=== PATIENT | male | born 1995 | race Caucasian/White ===

== ENCOUNTER 2023-08-05 18:27 | Emergency (ER) | payer OTHER ==
[~2023-08-05] VITALS: Ht 180.3 cm; Wt 95.3 kg
[2023-08-05 18:46] VITALS: BP_SYST 143; PULSE 76; RESP 16; TEMP 97.8; O2SAT 100
[2023-08-05] MEDS ORDERED: METR-154 PO (19:06)
[2023-08-05 19:18] VITALS: BP_SYST 143; PULSE 76; RESP 16; TEMP 97.8; O2SAT 100
== END 2023-08-05 19:19 | disposition home or self-care (01) ==
LOC: SED 18:27
DX: K52.9 Noninfective gastroenteritis and colitis, unspecified (principal)
CPT/HCPCS: 99283